=== PATIENT | female | born 1985 | race Caucasian/White ===

== ENCOUNTER 2025-03-28 20:05 | Emergency (ER) | payer SELFPAY ==
--- NOTE | ~2025-03-28 | XR_ITS ---
Examination: XR chest 1V portable Clinical History: chest pain Comparison: None Technique: Portable AP Findings: Heart size normal. Lungs clear. No acute bony abnormality. IMPRESSION: 1. No acute cardiopulmonary findings given portable technique. Reviewed, dictated and finalized at location R. WIRE PHOTO OPERATOR
[2025-03-28 20:07] VITALS: BP 120/51; PULSE 102; RESP 20; TEMP 36.4; O2SAT 98
--- NOTE | 2025-03-28 20:33 | ECG_ITS ---
Test Date: 2025-03-28 20:53:07 Measurements Intervals [place] Rate: 78 P: 41 ID: [id number] QRS: 37 QRSD: 77 T: 31 QT: 354 QTc: 406 Interpretive Statements SINUS RHYTHM CANNOT RULE OUT PREVIOUS SEPTAL INFARCTION BORDERLINE ECG No previous ECG available for comparison Electronically Signed On 03-29-2025 13:30:48 OFFSET PRESS OPERATOR HELPER by Davion Lozoya M.D.
--- NOTE | 2025-03-28 21:01 | PC.NURSE ---
covid swab sent to lab
--- NOTE | 2025-03-28 21:08 | ED.PSYCH ---
HPI - Psych General Chief Complaint: Psychiatric Symptoms Stated Complaint: wellness check Time Seen by Provider: 03/28/25 20:32 Source: patient and EMS Mode of arrival: EMS Limitations: no limitations History of Present Illness HPI Narrative: This is a 39 year female that call [address] because some of chest pain but during EMS evaluation patient denied any chest pain and was driving through the state from [place] to [place] which is where she is from and felt like she was being chased. Patient has a history of depression and drug abuse, and states that she does use cocaine and methamphetamine but has used in a couple of days. Patient currently denies any chest pain no shortness of breath no nausea vomiting no abdominal pain no fever chills no dysuria or hematuria no flank pain. Patient at times is tearful because she feels like she is not safe but nothing specific. Onset (ago): hour(s) Duration: constant History of same: Yes Relieving factors: none Exacerbating factors: none Context: recent drug abuse Associated psychiatric symptoms: racing thoughts Associated symptoms: denies other symptoms Treatments prior to arrival: none Related Data Allergies Allergy/AdvReac Type Severity Reaction Status Date / Time trazodone Allergy Severe Difficulty Verified 03/28/25 21:10 Breathing Review of Systems Review of Systems: All systems reviewed & are unremarkable except as noted in HPI and below PMFSH Past Medical History Medical History Depression Social History Social History Substance use type: marijuana, crack/cocaine and methamphetamine Exam Const: General: healthy appearing and no acute distress Orientation/consciousness: patient oriented x3 Limitations: no limitations Neck: Neck: normal visual inspection, no lymphadenopathy and no meningeal signs Chest: Chest palpation & inspection: normal inspection of the chest Resp: Effort & Inspection: normal respiratory effort Auscultation: clear to auscultation bilaterally Cardio: Rate: regular rate Rhythm: regular rhythm GI: GI Palp: Yes Soft to palpation Auscultation: normal bowel sounds : General: Yes bladder normal to palpation Skin: General skin exam: normal color Rashes: no rashes Wounds: no wounds Neuro: General: patient oriented x3, moves all extremities, no meningeal signs and no focal motor deficits Extrem: General: normal to inspection, no clubbing, cyanosis or edema and no pedal edema Psych: Attitude: cooperative Other: Anxious affect Course Course Emergency Course: Medical decision making narrative: The patient was evaluated by myself in the emergency department. History obtain from the patient was independent historian physical exam performed witnessed by nurse. Labs obtained for medical clearance were reviewed and within normal limits. EKG showed normal sinus rhythm. Repeat assessment: Doing well on repeat exam no acute distress Symptoms are stable since arrival to the emergency department Repeat vitals are stable Patient agrees with discussion and after shared medical decision-making and agrees with admission to psychiatric inpatient. Mental health evaluation complete and recommended inpatient admission. Vital Signs Vital signs: Vital Signs Temperature 36.4 C L 03/28/25 20:07 Pulse Rate 102 H 03/28/25 20:07 Respiratory Rate 20 03/28/25 20:07 Blood Pressure 120/51 L 03/28/25 20:07 Pulse Oximetry 98 03/28/25 20:07 Oxygen Delivery Room Air 03/28/25 20:07 Temperature 36.3 C L 03/29/25 01:05 Pulse Rate 88 03/29/25 01:05 Respiratory Rate 20 03/29/25 01:05 Blood Pressure 94/49 L 03/29/25 01:05 Pulse Oximetry 97 03/29/25 01:05 Oxygen Delivery Room Air 03/29/25 01:05 MDM - Psych Lab Data 03/28/25 21:22 03/28/25 21:22 Labs: Lab Results 03/28/25 03/28/25 03/28/25 Range/Units 20:56 20:59 21:22 WBC 9.2 (4.8-10.8) K/mm3 RBC 4.64 (4.20-5.40) M/mm3 Hgb 13.7 (12.0-15.0) g/dL Hct 40.4 (35.0-49.0) % MCV 87.1 (78.0-102.0) fL MCH 29.5 (27.0-31.0) pg MCHC 33.9 (32-36) g/dL RDW 12.9 (11.6-14.4) % Plt Count 295 (150-420) K/mm3 MPV 9.0 L (9.2-11.8) fl Immature Gran % (Auto) 0.4 H (0.0-0.0) % Neut % (Auto) 76.5 H (50.0-70.0) % Lymph % (Auto) 16.2 L (18.0-42.0) % [place] % (Auto) 5.6 (2.0-11.0) % Eos % (Auto) 1.0 (1.0-6.0) % Baso % (Auto) 0.3 (0.0-1.0) % Lymph # (Auto) 1.48 (1.10-4.50) K/mm3 [place] # (Auto) 0.51 (0.10-0.90) K/mm3 Eos # (Auto) 0.09 (0.02-0.50) K/mm3 Baso # (Auto) 0.03 (0.00-0.10) K/mm3 Abs Immat Gran (auto) 0.04 H (0.00-0.00) K/mm3 Absolute Neuts (auto) 7.00 (1.70-7.20) K/mm3 Absolute Nucleated RBC 0.00 (0.00-0.00) K/mm3 Nucleated RBC % 0.0 (0-0.0) % Sodium 142 (137-145) mmol/L Potassium 4.0 (3.4-5.0) mmol/L Chloride 107 (98-107) mmol/L Carbon Dioxide 25 (22-30) mmol/L Anion Gap 10 (4-12) mmol/L BUN 11 (7-17) mg/dL Creatinine 0.89 (0.7-1.0) mg/dL Estim Creat Clear Calc 76 ml/min Estimated GFR > 60 (59 - ) Glucose 146 H (65-110) mg/dL Calculated Osmolality 296 H (285-295) mOsm/kg Calcium 9.3 (8.4-10.2) mg/dL Total Bilirubin 1.3 (0.2-1.3) mg/dL AST 36 (14-36) U/L ALT 36 H (6-35) U/L Alkaline Phosphatase 104 (38-126) U/L Total Protein 7.7 (6.3-8.2) g/dL Albumin 4.9 (3.5-5.1) g/dL TSH 0.891 (0.465-4.680) uIU/mL Urine Color Light yellow (Yellow) Urine Appearance Clear (Clear) Urine pH 6.0 (5.0-8.0) Ur Specific [place] <= 1.005 L (1.010-1.020) Urine Protein Negative (Negative) Urine Glucose (UA) Negative (Negative) Urine Ketones Negative (Negative) Ur Blood (Man) 1+ H (Negative) Urine Nitrate Negative (Negative) Urine Bilirubin Negative (Negative) Urine Urobilinogen 0.2 (0.2-1.0) mg/dL Leukocyte Esterase Rfl 1+ H (Negative) TAMMI/UL Urine RBC 3-5 H (0-2) /hpf Urine WBC 4-6 H (0-3) /hpf Ur Squamous Epith Cells Few (Few) /hpf Urine Bacteria Trace (None) /hpf Salicylates < 1.0 L (2-20) mg/dL Urine Opiates Screen Negative (Negative) Urine Methadone Screen Negative (Negative) Acetaminophen < 10 L (10-30) ug/mL Ur Barbiturates Screen Negative (Negative) Ur Phencyclidine Scrn Negative (Negative) Ur Amphetamine Screen Negative (Negative) U Benzodiazepines Scrn Negative (Negative) Urine Cocaine Screen Positive A (Negative) U Cannabinoids Screen Positive A (Negative) Ethyl Alcohol < 10 (<10) mg/dL SARS-CoV-2 RNA (RT-PCR) Negative (Negative) SARS-CoV-2 Ag (Rapid) Cancelled Critical Care Time Critical Care Time Critical Care Time: No Discharge Plan Discharge Clinical Impression: Paranoid schizophrenia Patient Disposition: Psychiatric Hosp Condition: Stable Patient Language: Citizen Of [place] Follow-up/Referrals: PHYSICIAN,PIE CRIMPING MACHINE OPERATOR [Primary Care Provider, Internal Medicine]
[2025-03-28 21:09] LABS: Add Urine Microscopic? YES; Appearance Urine Clear (Clear); Glucose Urine UA Negative (Negative); Leukocyte Esterase Ur 1+ LEU/UL (Negative); Nitrate Urine Negative (Negative); Specific Grav Ur <= 1.005 (1.010-1.020)
[2025-03-28 21:26] LABS: Hematocrit 40.4 % (35.0-49.0); Hemoglobin 13.7 g/dL (12.0-15.0); Immature Granulocyte Percent A 0.4 % (0.0-0.0); Lymphocytes Absolute Auto 1.48 K/mm3 (1.10-4.50); Mean Corpuscular HGB Conc 33.9 g/dL (32-36); Mean Corpuscular Hemoglobin 29.5 pg (27.0-31.0); Mean Corpuscular Volume 87.1 fL (78.0-102.0); Nucleated Red Blood Cells Absolute Auto 0.00 K/mm3 (0.00-0.00); Nucleated Red Blood Cells Perc 0.0 % (0-0.0); Platelet Count Result 295 K/mm3 (150-420); Red Blood Count 4.64 M/mm3 (4.20-5.40); White Blood Count 9.2 K/mm3 (4.8-10.8)
[2025-03-28 21:36] LABS: Cannabinoid Screen Urine Positive (Negative)
[2025-03-28 21:39] LABS: Acetaminophen < 10 ug/mL (10-30); Salicylate < 1.0 mg/dL (2-20)
[2025-03-28 21:41] LABS: Potassium 4.0 mmol/L (3.4-5.0); Sodium 142 mmol/L (137-145)
[2025-03-28 21:42] LABS: Alanine Aminotransferase 36 U/L (6-35); Albumin Level 4.9 g/dL (3.5-5.1); Alkaline Phosphatase 104 U/L (38-126); Anion Gap 10 mmol/L (4-12); Aspartate Amino Transferase 36 U/L (14-36); Bilirubin,Total 1.3 mg/dL (0.2-1.3); Blood Urea Nitrogen 11 mg/dL (7-17); Calcium 9.3 mg/dL (8.4-10.2); Carbon Dioxide 25 mmol/L (22-30); Chloride 107 mmol/L (98-107); Estimated CRCL calculation 76 ml/min; Estimated Glomerular Filt Rate > 60; Glucose 146 mg/dL (65-110); Osmolality Calculated 296 mOsm/kg (285-295); Total Protein 7.7 g/dL (6.3-8.2)
[2025-03-28 21:47] LABS: SARS-CoV-2 RNA PCR Negative (Negative)
[2025-03-28 22:09] LABS: Thyroid Stimulating Hormone 0.891 uIU/mL (0.465-4.680)
[2025-03-29 01:05] VITALS: BP 94/49; PULSE 88; RESP 20; TEMP 36.3; O2SAT 97
[2025-03-29] MEDS: NICOTINE (*PBKC) 14 MG PATCH 1 PATCH TRANSDERM (01:28)
--- NOTE | 2025-03-29 02:00 | PC.NURSE ---
This RN went to get patients medication from [facility]. When this RN arrived back in the unit, patient was up pacing the hallway stating that we (the staff) were cohorting with the enemy to kill her through medications and the nicotine patch. Patient stated that we were here to be the support system to keep her comfortable as she . Patient was re-educated and talked with for an extensive amount of time. Patient was reassured that her safety was our main concern and getting her to a safe place and environment for her to get the help she needs. This RN and [facility] crisis team sat with patient and was able to talk with her and calm the racing thoughts for her to be able to rest. Patient is requesting help, states that she knows that she is having a mental health crisis and is cooperative at this time. No unsafe behaviors noted during this episode.
[2025-03-29 03:56] VITALS: BP 109/52; PULSE 72; RESP 18; TEMP 36.6; O2SAT 98
--- NOTE | 2025-03-29 04:17 | PC.NURSE ---
Spoke with Ruma with [facility], doctor is requesting a cxr and a trop for acceptance. ERP aware, orders placed.
[2025-03-29 04:35] LABS: Troponin I < 0.012 ng/mL (0.000-0.034)
[2025-03-29 06:11] VITALS: BP 102/66; PULSE 68; RESP 16; O2SAT 98
--- NOTE | 2025-03-29 06:17 | PC.NURSE ---
updated chart faxed to [facility], [place], [facility]- spoke with Ruma, waiting on acceptance
[2025-03-29 08:25] VITALS: BP 112/82; PULSE 75; RESP 18; TEMP 36.8; O2SAT 99
--- NOTE | 2025-03-31 12:11 | PC.NURSE ---
final urine culture reviewed. <10,000 colony forming. this colony count is not considered significant.
--- NOTE | 2025-04-22 11:52 | PC.NURSE ---
RN attempts to contact pt regarding shoes left at the hospital. RN sent to voicemail. Pt's voicemail is full. RN unable to leave message for pt.
== END 2025-03-29 08:25 ==
PROVIDERS: Emergency Provider Emergency Medicine; Referring Provider Family Medicine
DX: F20.0 Paranoid schizophrenia (principal); Z20.822 Contact with and (suspected) exposure to COVID-19
CPT/HCPCS: 36415; 71045; 80053; 80143; 80179; 80307; 81001; 82077; 84443; 84484; 85025; 87086; 87635; 93005; 99285; A9270